=== PATIENT | male | born 1945 | race Caucasian/White ===

== ENCOUNTER → 2019-07-24 14:20 | Outpatient (CLI) | payer MEDICARE, SELFPAY ==
--- NOTE | 2019-07-24 14:26 | XR_ITS ---
PROCEDURE: XR FOOT WT BEARING RT 3V CLINICAL INDICATION: PF, foot pain Pain, plantar fasciitis COMPARISON: XR FOOT WT BEARING LT 3V from 07/24/2019 FINDINGS: No fracture or dislocation. No lytic or blastic change. There is normal mineralization. There is calcification along the plantar and lateral aspect of the distal 1st metatarsal suggesting hypertrophic changes of the sesamoid with osteoarthritic change of the distal aspect of the 1st metatarsal with the sesamoid. There is normal alignment. 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
--- NOTE | 2019-07-24 14:26 | XR_ITS ---
PROCEDURE: XR FOOT WT BEARING LT 3V CLINICAL INDICATION: PF, foot pain COMPARISON: No exams were available for comparison FINDINGS: No fracture or dislocation. No lytic or blastic change. There is normal mineralization. Mild osteoarthritis of the 1st metatarsophalangeal joint and at the lateral sesamoids at the 1st metatarsal distally. Small calcaneal spur is noted. Normal alignment. There is an accessory center of ossification versus an old fracture at the base of the 5th metatarsal. Other findings:None. 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 Old fracture versus ununited ossification center at the base of the 5th metatarsal Dictated by: Anjum De Souza MD 07/24/2019 16:19 Electronically signed by Anjum De Souza MD in [place] 07/24/2019 16:19
== END ==
PROVIDERS: Visit Provider Podiatrist
DX: M72.2 Plantar fascial fibromatosis (principal)
CPT/HCPCS: 73630